=== PATIENT | male | born 1940 | race Caucasian/White ===

== ENCOUNTER → 2016-10-04 | Outpatient (CLI) | payer MEDICARE, OTHER | END | disposition home or self-care (01) | LOC: CFH 08:44 | PROVIDERS: ATTEND Internal Medicine Cardiovascular Disease | DX: D17.9 Benign lipomatous neoplasm, unspecified (principal); R06.02 Shortness of breath; K44.9 Diaphragmatic hernia without obstruction or gangrene; Q79.1 Other congenital malformations of diaphragm; E78.2 Mixed hyperlipidemia; I10 Essential (primary) hypertension; N63 Unspecified lump in breast | CPT/HCPCS: 71020 ==

== ENCOUNTER 2018-10-22 09:28 | Emergency (ER) | payer MEDICARE, OTHER ==
[~2018-10-22] VITALS: Ht 180.3 cm; Wt 85.0 kg
--- NOTE | 2018-10-22 09:48 | NUR ---
RESIDENT MD IS AT THE BEDSIDE TO ASSESS
[2018-10-22 09:49] VITALS: BP 160/83
--- NOTE | 2018-10-22 09:58 | NUR ---
CXR AT THE BEDSIDE.
[2018-10-22] MEDS ORDERED: ASPIRIN 81 MG TABLET CHEW ONE (10:13)
[2018-10-22] MEDS ORDERED: ASPIRIN 81 MG TABLET CHEW PO ONE (10:30)
[2018-10-22 10:33] LABS: BASOPHILS # (AUTO) 0.02 x10^3/uL (0-0.1); BASOPHILS % (AUTO) 0 % (0-1); EOSINOPHILS % (AUTO) 0 % (1-7); LYMPHOCYTES # (AUTO) 0.51 x10^3/uL (1-3.4); LYMPHOCYTES % (AUTO) 7 % (22-44); MD NO; MEAN CORPUSCULAR HEMOGLOBIN 30.7 pg (27.5-34.5); MEAN CORPUSCULAR HGB CONC 32.6 g/dL (33.2-36.2); MEAN CORPUSCULAR VOLUME 94.2 fL (81-97); MEAN PLATELET VOLUME 7.6 fL (7.4-10.4); MONOCYTES # (AUTO) 0.25 x10^3/uL (0.2-0.8); MONOCYTES % (AUTO) 4 % (2-9); NEUTROPHILS # (AUTO) 6.49 x10^3/uL (1.8-6.8); NEUTROPHILS % (AUTO) 89 % (42-75); PLATELET COUNT 247 x10^3/uL (130-400); RED BLOOD COUNT 4.22 x10^6/uL (4.38-5.82); RED CELL DISTRIBUTION WIDTH 14.3 % (9.4-14.8)
[2018-10-22 10:42] LABS: ALBUMIN 3.9 g/dL (3.4-5.0); ANION GAP 8 mmol/L (5-15); CALCIUM 9.3 mg/dL (8.5-10.1); CHLORIDE 102 mmol/L (98-107)
[2018-10-22 10:48] LABS: ALANINE AMINOTRANSFERASE 23 U/L (12-78); ALKALINE PHOSPHATASE 96 U/L (45-117); BILIRUBIN,TOTAL 0.5 mg/dL (0.2-1.0); CREATININE 1.04 mg/dL (0.7-1.3); TOTAL PROTEIN 7.9 g/dL (6.4-8.2); TROPONIN I < 0.015 ng/mL (0.000-0.045)
--- NOTE | 2018-10-22 12:27 | NUR ---
PT IS RESTING COMFORTABLY ON AN E.R. GURNEY, THERE ARE NO ACUTE CHANGES NOTED SINCE HIS ARRIVAL HERE TODAY. HIS VS ARE STABLE, AND WDL. I WILL CONTINUE TO MONITOR AND TREAT ORDERED, WELL PRN WHILE AWAITING A RESULT FROM RECENT BLOOD SAMPLE.
[2018-10-22 12:38] LABS: TROPONIN I < 0.015 ng/mL (0.000-0.045)
== END 2018-10-22 13:06 | disposition home or self-care (01) ==
LOC: ED 11:00
DX: R07.2 Precordial pain (principal); R06.02 Shortness of breath; I10 Essential (primary) hypertension; E78.5 Hyperlipidemia, unspecified
CPT/HCPCS: 36415; 71045; 80053; 84484; 85025; 93005; 99284

== ENCOUNTER 2018-10-29 08:43 | Outpatient (CLI) | payer MEDICARE, OTHER | END 2018-10-29 23:59 | disposition home or self-care (01) | LOC: CFH 08:43 | PROVIDERS: ATTEND Internal Medicine Cardiovascular Disease | DX: I10 Essential (primary) hypertension (principal); R06.02 Shortness of breath; R07.89 Other chest pain; R42 Dizziness and giddiness | CPT/HCPCS: 78452; 93017; A9502 ==

== ENCOUNTER → 2018-11-10 | Outpatient (CLI) | payer MEDICARE, OTHER | END | disposition home or self-care (01) | LOC: CVU 07:07 | PROVIDERS: ATTEND Internal Medicine Cardiovascular Disease | DX: I08.8 Other rheumatic multiple valve diseases (principal); I10 Essential (primary) hypertension; E78.5 Hyperlipidemia, unspecified | CPT/HCPCS: 93306 ==

== ENCOUNTER 2019-06-08 19:43 | Emergency (ER) | payer MEDICARE, OTHER ==
[~2019-06-08] VITALS: Ht 182.9 cm; Wt 85.0 kg
--- NOTE | 2019-06-08 20:00 | NUR ---
Patient BIB [facility] c/o acute onset epigastric pain radiating into sternum. Upon EMS arrival, patient was clutching his chest in pain and also c/o SOB. Per EMS, 12-lead showed a potential second degree type II heart block. Patient was given Fentanyl and Zofran, which decreased his pain to a 1/10. Patient is currently resting in [facility] with no complaints. He is in NAD. Respirations even and unlabored.
[2019-06-08 21:07] LABS: BASOPHILS % (AUTO) 0 % (0-1); EOSINOPHILS % (AUTO) 0 % (1-7); LYMPHOCYTES # (AUTO) 0.56 x10^3/uL (1-3.4); LYMPHOCYTES % (AUTO) 8 % (22-44); MD NO; MEAN CORPUSCULAR HEMOGLOBIN 34.3 pg (27.5-34.5); MEAN CORPUSCULAR HGB CONC 33.7 g/dL (33.2-36.2); MEAN CORPUSCULAR VOLUME 101.6 fL (81-97); MEAN PLATELET VOLUME 7.9 fL (7.4-10.4); MONOCYTES # (AUTO) 0.25 x10^3/uL (0.2-0.8); MONOCYTES % (AUTO) 4 % (2-9); NEUTROPHILS # (AUTO) 6.31 x10^3/uL (1.8-6.8); NEUTROPHILS % (AUTO) 89 % (42-75); PLATELET COUNT 208 x10^3/uL (130-400); RED BLOOD COUNT 3.92 x10^6/uL (4.38-5.82); RED CELL DISTRIBUTION WIDTH 13.6 % (9.4-14.8)
[2019-06-08 21:20] LABS: ALBUMIN 3.7 g/dL (3.4-5.0); ANION GAP 6 mmol/L (5-15); CALCIUM 9.2 mg/dL (8.5-10.1); CHLORIDE 102 mmol/L (98-107); CREATININE 1.07 mg/dL (0.7-1.3)
[2019-06-08 21:24] LABS: TROPONIN I < 0.015 ng/mL (0.000-0.045)
[2019-06-08 22:52] VITALS: BP 131/96
--- NOTE | 2019-06-08 22:53 | NUR ---
Discharge instructions given. All questions and concerns addressed. Patient ambulatory with a steady gait. Belongings with patient.
== END 2019-06-08 22:54 | disposition home or self-care (01) ==
LOC: ED 22:45
DX: K44.9 Diaphragmatic hernia without obstruction or gangrene (principal); R07.89 Other chest pain; R06.00 Dyspnea, unspecified; I10 Essential (primary) hypertension
CPT/HCPCS: 36415; 71046; 80048; 82040; 84484; 85025; 93005; 99284

== ENCOUNTER → 2020-03-24 | Outpatient (CLI) | payer MEDICARE, OTHER | END | disposition home or self-care (01) | LOC: RAD 08:48 → EDSTATUS 09:00 | PROVIDERS: ATTEND Family Medicine | DX: Z87.891 Personal history of nicotine dependence (principal) | CPT/HCPCS: 76706 ==